=== PATIENT | male | born 1965 | race Hispanic/Latino ===

== ENCOUNTER → 2018-09-19 | Outpatient (CLI) | payer OTHER | END | disposition home or self-care (01) | LOC: RAH 14:35 | PROVIDERS: ATTEND Family Medicine | DX: Z13.6 Encounter for screening for cardiovascular disorders (principal) | CPT/HCPCS: 75571 ==

== ENCOUNTER 2020-01-15 06:01 | Day surgery (SDC) | payer OTHER ==
[2020-01-14 10:47] VITALS: BP 127/70
[~2020-01-15] VITALS: Ht 167.6 cm; Wt 90.4 kg
[2020-01-15] VITALS (17 sets, daily range): BP systolic 112–139; BP diastolic 66–81
[~2020-01-15 06:01] MED LIST: OXYM30SP27 NS
[2020-01-15] MEDS ORDERED: PROPOFOL 10 MG/ML 20ML VIAL IV ONE (07:33)
[2020-01-15] MEDS ORDERED: MIDAZOLAM HCL 1 MG/ML 2ML VIAL ONE ×2 (07:33→07:36)
[2020-01-15] MEDS ORDERED: ONDANSETRON HCL 4 MG/2 ML VIAL ONE (07:33)
[2020-01-15] MEDS ORDERED: LIDOCAINE PF 2% 5ML ABBOJECT ONE (07:33)
[2020-01-15] MEDS ORDERED: DEXAMETHASONE SOD PHOSPHATE 10MG/ML 1ML VIAL ONE (07:33)
[2020-01-15] MEDS ORDERED: FENTANYL CITRATE PF 50 MCG/1 ML 2ML VIAL ONE (07:34)
[2020-01-15] MEDS ORDERED: ROCURONIUM 10MG/1ML SYR 10 MG/ML ML ONE ×2 (07:39→09:30)
[2020-01-15] MEDS ORDERED: ROPIVACAINE 0.5% 5MG/ML 30ML IJ ONE (07:39)
[2020-01-15] MEDS ORDERED: EPINEPHRINE 1 MG/ML 30ML VIAL IJ ONE (07:46)
[2020-01-15] MEDS ORDERED: LACTATED RINGERS 1000ML 1,000 ML IV ONE (08:30)
[2020-01-15] MEDS ORDERED: CEFAZOLIN SODIUM 1 GM VIAL ONE (08:30)
--- NOTE | 2020-01-15 08:45 | NUR ---
potential for infection: clipped right shulder, axillae and upper arm per epi veronica, followed by wiping with osman: 2% chlorhexidine gluconate cloth patients preop skin prep.
[2020-01-15] MEDS ORDERED: EPHEDRINE SULFATE 50 MG/ML AMPULE ONE (09:29)
[2020-01-15] MEDS ORDERED: PHENYLEPHRINE HCL 10 MG/ML 1ML VIAL IV ONE (09:43)
[2020-01-15] MEDS ORDERED: HETASTARCH IN 0.9 % NACL 500 ML IV ONE (09:52)
[2020-01-15] MEDS ORDERED: FENTANYL CITRATE PF 50 MCG/1 ML 5ML AMP IV ONE (10:01)
[2020-01-15] MEDS ORDERED: NEOSTIGMINE 5MG/5ML SYR IV ONE (11:50)
[2020-01-15] MEDS ORDERED: GLYCOPYRROLATE 1 MG/5 ML SYRINGE ONE (11:50)
[2020-01-15] MEDS ORDERED: KETOROLAC TROMETHAMINE 30MG/ML ONE (11:55)
[2020-01-15] MEDS ORDERED: CEPH500B PO (12:16)
[2020-01-15] MEDS ORDERED: IBUP-2070 PO (12:16)
[2020-01-15] MEDS ORDERED: HYDR-4457 PO (12:16)
--- NOTE | 2020-01-15 13:20 | NUR ---
post received pt from [facility], s/p right shoulder arthroscopy, dressing x 3 dry and intact, swelling to site noted. right shoulder in arm sling. neurovascular checks to right hand wnl. pt awake and alert in bed,no distress noted. pt denied any pain or discomforts. call light within reach.
--- NOTE | 2020-01-15 13:50 | NUR ---
dc dc instructions given to pt sister al over the phone, instructed to f/u with dr. hernandez. on new med regimen, .to picking supervisor medications at [facility] on [address], located within [facility], b was called and confirm medications received via electronic. right shoulder dressings x 3 dry and intact, arm sling in place
--- NOTE | 2020-01-15 13:55 | NUR ---
dc pt dc home via [facility],no distress noted , pt denied any pain or discomforts. pt accompanied by sister.
== END 2020-01-15 13:55 | disposition home or self-care (01) ==
LOC: DAH 06:01
PROVIDERS: ATTEND Orthopaedic Surgery
DX: S46.011A Strain of muscle(s) and tendon(s) of the rotator cuff of right shoulder, initial encounter (principal); M75.41 Impingement syndrome of right shoulder; Z86.718 Personal history of other venous thrombosis and embolism; X58.XXXA Exposure to other specified factors, initial encounter; Y93.89 Activity, other specified; Y92.89 Other specified places as the place of occurrence of the external cause; Y99.0 Civilian activity done for income or pay; Z11.59 Encounter for screening for other viral diseases
CPT/HCPCS: 29822; 29826; 29827; 36415; 64415; 76942; A4213; A4215; A4221; A4222; A4223; A4565; A4649 ×6; A4663; A4930; A5120; A6204; C1713 ×3; G0168; J0171; J0690; J1100; J1885; J2001; J2250 ×2; J2370; J2405; J2704; J2710; J2795; J3010 ×2; J3490 ×3; J7030 ×2; J7120; U0003

== ENCOUNTER 2020-05-02 06:32 | Day surgery (SDC) | payer OTHER ==
[2020-04-27 12:00] VITALS: BP 145/88
[2020-04-27 12:45] LABS: BASOPHILS % (AUTO) 0.6 % (0.0-5.0); EOSINOPHILS % (AUTO) 1.9 % (0.0-8.0); HEMATOCRIT 48.1 % (42-54); LYMPHOCYTES % (AUTO) 21.7 % (21.0-51.0); MEAN CORPUSCULAR HEMOGLOBIN 27.7 pg (27.0-33.0); MEAN CORPUSCULAR HGB CONC 31.6 g/dL (32.0-36.0); MEAN CORPUSCULAR VOLUME 87.6 fL (79-99); MONOCYTES % (AUTO) 7.1 % (3.0-13.0); NEUTROPHILS % (AUTO) 68.5 % (40.0-77.0); PLATELET COUNT (AUTO) 251 K/uL (130-400); RED BLOOD CELL COUNT(AUTO) 5.49 MIL/uL (4.50-6.20); RED CELL DISTRIBUTION WIDTH 13.7 % (11.0-15.5); WHITE BLOOD COUNT (AUTO) 8.7 K/uL (4.8-10.8)
[2020-04-27 13:00] LABS: CREATININE 1.1 mg/dL (0.5-1.5); POTASSIUM 5.1 mmol/L (3.5-5.1)
[2020-05-02] VITALS (17 sets, daily range): BP systolic 121–136; BP diastolic 69–92
[~2020-05-02] VITALS: Ht 172.7 cm; Wt 88.5 kg
[~2020-05-02 06:32] MED LIST changes: +AEC81 PO; +CEFAZOLIN SODIUM 1 GM VIAL IVP SCH; +HYDR-4457 PO; -OXYM30SP27 NS
[2020-05-02] MEDS ORDERED: MIDAZOLAM HCL 1 MG/ML 2ML VIAL ONE (07:35)
[2020-05-02] MEDS ORDERED: ONDANSETRON HCL 4 MG/2 ML VIAL ONE ×2 (07:35→13:28)
[2020-05-02] MEDS ORDERED: LIDOCAINE PF 2% 5ML ABBOJECT ONE (07:35)
[2020-05-02] MEDS ORDERED: DEXAMETHASONE SOD PHOSPHATE 10MG/ML 1ML VIAL ONE (07:35)
[2020-05-02] MEDS ORDERED: PROPOFOL 10 MG/ML 20ML VIAL IV ONE (07:35)
[2020-05-02] MEDS ORDERED: FENTANYL CITRATE PF 50 MCG/1 ML 2ML VIAL ONE (07:35)
[2020-05-02] MEDS ORDERED: ROCURONIUM 10MG/1ML SYR 10 MG/ML ML ONE (07:36)
[2020-05-02] MEDS ORDERED: ROPIVACAINE 0.5% 5MG/ML 30ML IJ ONE (07:39)
[2020-05-02] MEDS ORDERED: EPINEPHRINE 1 MG/ML 30ML VIAL IJ ONE (07:51)
[2020-05-02] MEDS ORDERED: EPHEDRINE SULFATE 50 MG/ML AMPULE ONE (10:10)
[2020-05-02] MEDS ORDERED: AEC81 PO (11:43)
[2020-05-02] MEDS ORDERED: CEPH500B PO (11:43)
[2020-05-02] MEDS ORDERED: HYDR-4457 PO (11:43)
== END 2020-05-02 13:50 | disposition home or self-care (01) ==
LOC: DAH 06:32
PROVIDERS: ATTEND Orthopaedic Surgery
DX: S46.012A Strain of muscle(s) and tendon(s) of the rotator cuff of left shoulder, initial encounter (principal); M75.42 Impingement syndrome of left shoulder; X58.XXXA Exposure to other specified factors, initial encounter; Y93.89 Activity, other specified; Y92.69 Other specified industrial and construction area as the place of occurrence of the external cause; Y99.0 Civilian activity done for income or pay; Z86.718 Personal history of other venous thrombosis and embolism; Z98.890 Other specified postprocedural states; Z79.899 Other long term (current) drug therapy; Z20.828 Contact with and (suspected) exposure to other viral communicable diseases
CPT/HCPCS: 23430; 29826; 29827; 36415; 80048; 85025; 87641; A4215; A4221; A4222; A4223; A4565; A4600; A4649 ×6; A4663; A4930; A6204; C1713 ×3; C9803; G0168; J0171; J0690; J1100; J2001; J2250; J2405 ×2; J2704; J2795; J3010; J3490; J7030; U0003

== ENCOUNTER 2020-08-08 05:57 | Day surgery (SDC) | payer OTHER ==
[2020-08-03 09:56] LABS: HEMATOCRIT 44.3 % (42-54); MEAN CORPUSCULAR HEMOGLOBIN 27.4 pg (27.0-33.0); MEAN CORPUSCULAR HGB CONC 31.8 g/dL (32.0-36.0); MEAN CORPUSCULAR VOLUME 86.2 fL (79-99); PLATELET COUNT (AUTO) 284 K/uL (130-400); RED BLOOD CELL COUNT(AUTO) 5.14 MIL/uL (4.50-6.20); RED CELL DISTRIBUTION WIDTH 13.4 % (11.0-15.5); WHITE BLOOD COUNT (AUTO) 6.8 K/uL (4.8-10.8)
[2020-08-03 10:11] LABS: CREATININE 1.1 mg/dL (0.5-1.5)
[2020-08-03 11:25] LABS: LYMPHOCYTES % (MANUAL) 25 % (22-44); MAN.DIFF COMMENT-IMPRESSION MANUAL DIFFERENTIAL; MONOCYTES % (MANUAL) 8 % (2-9); PLATELET MORPHOLOGY COMMENT ADEQUATE; SEGMENTED NEUTROPHILS % 67 % (40-70)
[2020-08-05 11:56] VITALS: BP 149/95
[~2020-08-08] VITALS: Ht 167.6 cm; Wt 88.0 kg
[2020-08-08] VITALS (16 sets, daily range): BP systolic 101–125; BP diastolic 67–79
[~2020-08-08 05:57] MED LIST changes: -HYDR-4457 PO; +IBUP-2077 PO
[2020-08-08] MEDS ORDERED: LACTATED RINGERS 1000ML 1,000 ML IV ONE (06:17)
[2020-08-08] MEDS ORDERED: CEFAZOLIN SODIUM 1 GM VIAL ONE (07:04)
[2020-08-08] MEDS ORDERED: PROPOFOL 10 MG/ML 20ML VIAL IV ONE (07:36)
[2020-08-08] MEDS ORDERED: ROCURONIUM 10MG/1ML SYR 10 MG/ML ML ONE (07:36)
[2020-08-08] MEDS ORDERED: SUCCINYLCHOLINE CHLORIDE 20 MG/ML 10 ML VIAL ONE (07:36)
[2020-08-08] MEDS ORDERED: LIDOCAINE PF 100MG/5ML (2%) SYRINGE 5ML ONE (07:36)
[2020-08-08] MEDS ORDERED: FENTANYL CITRATE PF 50 MCG/1 ML 2ML VIAL ONE (07:37)
[2020-08-08] MEDS ORDERED: ROPIVACAINE 0.5% 5MG/ML 30ML IJ ONE (07:41)
[2020-08-08] MEDS ORDERED: GLYCOPYRROLATE 1 MG/5 ML SYRINGE ONE (08:59)
[2020-08-08] MEDS ORDERED: KETOROLAC 30MG VIAL (30MG/ML) ONE (10:18)
[2020-08-08] MEDS ORDERED: NEOSTIGMINE 5MG/5ML SYR IV ONE (10:18)
[2020-08-08] MEDS ORDERED: HYDR-4457 PO (10:40)
[2020-08-08] MEDS ORDERED: CEPH500B PO (10:40)
== END 2020-08-08 12:19 | disposition home or self-care (01) ==
LOC: DAH 05:57
PROVIDERS: ATTEND Orthopaedic Surgery
DX: S46.011A Strain of muscle(s) and tendon(s) of the rotator cuff of right shoulder, initial encounter (principal); Z20.828 Contact with and (suspected) exposure to other viral communicable diseases; Z86.718 Personal history of other venous thrombosis and embolism; Z87.891 Personal history of nicotine dependence; Z82.49 Family history of ischemic heart disease and other diseases of the circulatory system; Z83.3 Family history of diabetes mellitus; Z79.82 Long term (current) use of aspirin; Z79.899 Other long term (current) drug therapy; Z98.890 Other specified postprocedural states; X58.XXXA Exposure to other specified factors, initial encounter; Y99.0 Civilian activity done for income or pay; Y92.89 Other specified places as the place of occurrence of the external cause
CPT/HCPCS: 23412; 36415; 80048; 85025; A4215; A4221; A4222; A4223; A4565; A4600; A4649; A4663; A4930 ×2; A6207; C1713 ×2; C9803; G0168; J0330; J0690 ×2; J1885; J2001; J2704; J2710; J2795; J3010; J3490; J7120 ×2; U0003

== ENCOUNTER → 2020-10-04 | Outpatient (CLI) | payer OTHER ==
[~2020-10-04] MED LIST changes: -CEFAZOLIN SODIUM 1 GM VIAL IVP SCH; +CEPH500B PO; +HYDR-4457 PO
== END | disposition home or self-care (01) ==
LOC: OIH 18:27
PROVIDERS: ATTEND Family Medicine
DX: Z13.6 Encounter for screening for cardiovascular disorders (principal)
CPT/HCPCS: 75571